=== PATIENT | female | born 1960 | race Caucasian/White ===

== ENCOUNTER 2017-03-27 17:09 | Inpatient (IN) | payer BC ==
[~2017-03-27] VITALS: Ht 171.5 cm; Wt 83.2 kg
[~2017-03-27 17:09] MED LIST: ADVIL PO; AMBIEN5 MG PO; ANTIDEPRESSANT; ASPIRIN81 M1 PO; CITALOPRAM HBR20 MG PO; MELATONIN5 M7 PO; MULTIVITAMIN1 TAB PO; PREDNISONE1 MG PO; ULTRAM50 MG PO; ZOFRAN ODT4 MG/UDTAB PO
[2017-03-27 18:25] LABS: BASO % 0.3 % (0-2); CARBON DIOXIDE-VENOUS 27 mmol/L (21-33); CREATININE 0.79 mg/dl (0.50-1.10); EOSINOPHIL ABSOLUTE COUNT 0.1 tho/cmm (0.0-0.7); GLUCOSE 93 mg/dl (65-120); HCT-HEMATOCRIT 39.1 % (34.0-49.0); HGB-HEMOGLOBIN 13.4 gm/dl (12.0-15.5); LYMPH % 25.9 % (20-45); LYMPH ABSOLUTE COUNT 1.5 tho/cmm (0.8-4.5); MCH (MEAN CORPUSCULAR HGB) 30.9 pg (28.0-32.0); MCHC MEAN CORPUSCULAR HGB CONC 34.3 % (32.0-36.0); MCV (MEAN CELL VOLUME) 90.3 fl (82.0-96.0); MEAN PLATELET VOLUME 8.6 cmc (9.4-12.4); MONO % 7.5 % (0-12); MONOCYTE ABSOLUTE COUNT 0.4 tho/cmm (0.0-1.2); NEUTROPHIL ABSOLUTE COUNT 3.8 tho/cmm (1.6-8.0); NEUTROPHIL-AUTOMATED 3.8 tho/cmm (1.6-8.0); NEUTROPHILS % 65.3 % (40-80); PLATELET COUNT 308 tho/cmm (150-450); POTASSIUM 4.7 mmol/L (3.7-5.1); RED BLOOD COUNT 4.33 mil/cmm (4.00-5.20); RED CELL DISTRIBUTION WIDTH 13.1 % (12.4-16.4); SODIUM 142 mmol/L (135-146); WHITE BLOOD COUNT 5.9 tho/cmm (4.0-10.0); eGFR VALUE FOR BLACK >90 mL/Min
[2017-03-27 18:31] LABS: PROTHROMBIN TIME 11.8 SECONDS (9.0-13.6)
[2017-03-27 18:47] LABS: ESR-ERYTHROCYTE SED RATE 3 mm/hr (0-30)
[2017-03-27 18:48] LABS: ANION GAP 11 mmol/L (0-20); BLOOD UREA NITROGEN 21 mg/dl (6-24); CALCIUM 9.9 mg/dl (8.5-10.5); CHLORIDE 109 mmol/l (96-110)
[2017-03-27 18:49] LABS: ALB/GLOB RATIO 1.2 (0.8-2.0); ALBUMIN 4.1 g/dl (3.5-5.0); ALKALINE PHOSPHATASE 92 U/L (33-138); ALT/SGPT 32 U/L (12-78); AST/SGOT 28 U/L (10-40); BILIRUBIN,TOTAL 0.5 mg/dl (0-1.5)
[2017-03-29] MEDS ORDERED: SOLU-MEDROL1000 MG IV (14:57)
== END 2017-03-29 15:35 | DRG 60 ==
LOC: EDMED 17:09 → EMR2 20:54 → 5EB 20:54
PROVIDERS: Emergency Medicine; ADMIT Internal Medicine
DX: G35 Multiple sclerosis (principal); I83.90 Asymptomatic varicose veins of unspecified lower extremity
CPT/HCPCS: A9577; J2930